=== PATIENT | female | born 1975 ===

== ENCOUNTER → 2020-04-22 | Outpatient (CLI) | payer BC ==
[2020-04-26 19:09] LABS: HPV 16 Negative (Negative); HPV 18 Negative (Negative); HPV OTHER HR TYPES Negative (Negative)
== END | disposition home or self-care (01) ==
LOC: LAB SHORT 08:44 → LAB 08:44
PROVIDERS: Obstetrics & Gynecology
DX: Z12.4 Encounter for screening for malignant neoplasm of cervix (principal)
CPT/HCPCS: 87624; G0123